=== PATIENT | female | born 1975 | race Caucasian/White ===

== ENCOUNTER 2017-08-11 23:12 | Emergency (ER) | payer BC ==
[~2017-08-11] VITALS: Ht 165.1 cm; Wt 56.7 kg
[2017-08-11] MEDS ORDERED: BUPROPION XL300 MG ORAL (23:27)
[2017-08-11] MEDS ORDERED: SERTRALINE HCL100 MG PO (23:27)
[2017-08-11 23:28] VITALS: BP 127/75
--- NOTE | 2017-08-11 23:36 | Emergency Room Report ---
History of Present Illness General Chief Complaint: Eye Problems Source: Patient Present Illness HPI Patient presents with complaints of irritation to the right eye Patient reports having eyelashes put on earlier today Soon after that the patient began having irritation and pain Denies any change in vision denies any headache denies any fevers or chills denies any obvious discharge has noticed mainly some erythema Allergies: Coded Allergies: MERCAPTOPURINE (Verified Allergy, Unknown, 08/11/17) Patient History Past Medical History: see triage record Pertinent Family History: none Last Menstrual Period: 3 weeks ago Now: No - on control pill Reviewed Nursing Documentation: PMH: Agreed, PSxH: Agreed Nursing Documentation-PMH Past Medical History: No History, Except For History Of Psychiatric Problem: Yes - depression Review of Systems All Other Systems: negative except mentioned in HPI Physical Exam Vital Signs Date Time Temp Pulse Resp B/P (MAP) Pulse Ox O2 Delivery O2 Flow Rate FiO2 08/11/17 23:18 98.2 81 16 127/75 97 Room Air Sp02 EP Interpretation: reviewed, normal General Appearance: well appearing, no apparent distress Head: normocephalic, atraumatic Eyes: right eye other - Conjunctival erythema injected no obvious, fluorescein pickup ENT: hearing grossly normal, normal pharynx Neck: supple Musculoskeletal: normal inspection Neurologic: alert, oriented x3, responsive Skin: normal inspection, normal color Lymphatic: no adenopathy Medical Decision Making Diagnostic Impression: Primary Impression: Conjunctivitis ER Course Fluorescein stain with tetracaine was performed no signs of any uptake or lacerations Patient did feel better showing likely signs of corneal pathology Patient was placed on gentamicin ointment We did discuss removal of the eyelashes patient will discuss that with her specialist And have close outpatient followup Last Vital Signs Date Time Temp Pulse Resp B/P (MAP) Pulse Ox O2 Delivery O2 Flow Rate FiO2 08/11/17 23:28 98.2 86 16 127/75 97 Room Air Status: improved Disposition: HOME, SELF-CARE Condition: Improved Scripts Gentamicin Sulfate* (GENTAMICIN SULFATE*) 3.5 Gm Oint...g. 3.5 GM OP TID for 7 Days, GM Prov: SCOTTIE SANDOVAL D.O. 08/11/17 Ibuprofen* (MOTRIN*) 600 Mg Tablet 600 MG ORAL Q8H Y for For Pain, #20 TAB 0 Refills Prov: SCOTTIE SANDOVAL D.O. 08/11/17 Additional Instructions: Patient is provided with the discharge instructions notified to follow up with primary doctor in the next 2-3 days otherwise return to the er with any worsening symptoms. Please note that this report is being documented using [employer] technology. This can lead to erroneous entry secondary to incorrect interpretation by the dictating instrument. SCOTTIE SANDOVAL D.O. Aug 11, 2017 23:36
[2017-08-11] MEDS ORDERED: Tetracaine 0.5% Opth 4ml Soln RIGHT EYE ONE (23:45)
[2017-08-11] MEDS ORDERED: Fluorescein Strips RIGHT EYE ONE (23:45)
[2017-08-11] MEDS ORDERED: IBUPROFEN600 MG ORAL (23:51)
[2017-08-11] MEDS ORDERED: GENTAMICIN SUL3.5 GM OP (23:51)
[2017-08-11 23:53] VITALS: BP 127/75
== END 2017-08-11 23:53 | disposition home or self-care (01) ==
LOC: EMR 23:51
DX: H10.9 Unspecified conjunctivitis (principal); F32.9 Major depressive disorder, single episode, unspecified; Z88.8 Allergy status to other drugs, medicaments and biological substances
CPT/HCPCS: 99283